=== PATIENT | male | born 1970 | race American Indian/Alaskan Native ===

== ENCOUNTER 2020-05-04 03:45 | Emergency (ER) | payer SELFPAY ==
[2020-05-04] MEDS ORDERED: ACETAMINOPHEN 500 MG TAB PO ONE (04:24)
[2020-05-04] MEDS ORDERED: KETOROLAC 10 MG TAB PO ONE (04:24)
[2020-05-04 04:27] VITALS: BP 146/87
--- NOTE | 2020-05-04 04:27 | Emergency Department Report ---
ED General Adult HPI - General Chief complaint: Pain General Stated complaint: RIB PAIN Time Seen by Provider: 05/04/20 04:22 Source: patient Mode of arrival: Ambulatory Limitations: No Limitations - History of Present Illness Initial comments: 49-year-old male with a past medical history of hypertension, asthma and sleep apnea presents to the ER today complaining of right rib pain. Patient states that last week Tuesday he was getting a massage. He was laying on his abdomen, and during the massage she felt a pop in the right anterior lower ribs. He states since then he has been having pain in that area. He states that is worse when he lays on the right side when he moves in certain positions on palpation and mildly with deep breaths. He states that due to his asthma he has chronic shortness of breath but nothing worsesince the rib injury. He denies any apparent bruising, redness or swelling. Complaint: Right rib pain -: Sudden (Tuesday ) - Related Data Home Medications Medication Instructions Recorded Confirmed Last Taken Carvedilol 25 mg PO DAILY 01/20/18 01/20/18 01/23/18 07:00 Losartan/Hydrochlorothiazide 12.5 - 100 mg PO DAILY 01/20/18 01/20/18 01/23/18 07:00 amLODIPine 10 mg PO DAILY 01/20/18 01/23/18 01/23/18 07:00 Previous Rx's Medication Instructions Recorded Last Taken Type Ibuprofen [Motrin] 800 mg PO Q8HR PRN #30 tablet 05/04/20 Unknown Rx Allergies Allergy/AdvReac Type Severity Reaction Status Date / Time coconut Allergy Intermediate Rash Verified 01/23/18 09:35 ED Review of Systems ROS: Stated complaint: RIB PAIN Other details as noted in HPI Comment: All other systems reviewed and negative Constitutional: denies: chills, fever ENT: denies: ear pain, throat pain Respiratory: denies: cough, shortness of breath, SOB with exertion, SOB at rest, wheezing Cardiovascular: denies: chest pain, palpitations, dyspnea on exertion, orthopnea (Right rib pain), edema, syncope, paroxysmal nocturnal dyspnea Gastrointestinal: denies: abdominal pain, nausea, vomiting, diarrhea, constipation, hematemesis Musculoskeletal: denies: back pain, joint swelling, arthralgia Skin: denies: rash, lesions Neurological: denies: headache, weakness, paresthesias Psychiatric: denies: anxiety, depression ED Past Medical Hx - Past Medical History Previous Medical History?: Yes Hx Hypertension: Yes Hx Asthma: No Additional medical history: Obesity - Surgical History Past Surgical History?: Yes Additional Surgical History: Umbilical Hernia Repair - Social History Smoking Status: Never Smoker Substance Use Type: None - Medications Home Medications: Home Medications Medication Instructions Recorded Confirmed Last Taken Type Carvedilol 25 mg PO DAILY 01/20/18 01/20/18 01/23/18 07:00 History Losartan/Hydrochlorothiazide 12.5 - 100 mg PO DAILY 01/20/18 01/20/18 01/23/18 07:00 History amLODIPine 10 mg PO DAILY 01/20/18 01/23/18 01/23/18 07:00 History Ibuprofen [Motrin] 800 mg PO Q8HR PRN #30 tablet 05/04/20 Unknown Rx ED Physical Exam - General Limitations: No Limitations General appearance: alert, in no apparent distress - Head Head exam: Present: atraumatic, normocephalic, normal inspection - Eye Eye exam: Present: normal appearance, PERRL, EOMI Pupils: Present: normal accommodation - ENT ENT exam: Present: normal exam, mucous membranes moist - Neck Neck exam: Present: normal inspection - Respiratory Respiratory exam: Present: normal lung sounds bilaterally, other (Point tenderness to palpation to the ribs just underneath the right breast. No apparent swelling, bruising or ecchymosis noted. No deformity). Absent: respiratory distress - Cardiovascular Cardiovascular Exam: Present: regular rate, normal rhythm, normal heart sounds - GI/Abdominal GI/Abdominal exam: Present: soft. Absent: distended, tenderness - Neurological Exam Neurological exam: Present: alert, oriented X3, CN II-XII intact, normal gait - Psychiatric Psychiatric exam: Present: normal affect, normal mood - Skin Skin exam: Present: intact ED Course Vital Signs 05/04/20 05/04/20 04:04 04:26 Temperature 98.1 F Pulse Rate 94 H 87 Respiratory 16 18 Rate Blood Pressure 157/119 Blood Pressure 146/87 [Left] O2 Sat by Pulse 95 100 Oximetry ED Medical Decision Making - Radiology Data Radiology results: report reviewed - Medical Decision Making Rib x-ray shows nothing acute. Patient resting comfortably, he does not appear to be in any pain or respiratory distress. He is not toxic or ill-appearing. He is neurologically intact. No further work-up indicated at this time. D iscussed x-ray results and suspected diagnosis with patient. Recommend follow- up with his primary care doctor and take Motrin as prescribed. Patient was stable at time of discharge. Critical care attestation.: If time is entered above; I have spent that time in minutes in the direct care of this critically ill patient, excluding procedure time. ED Disposition Clinical Impression: Rib contusion Disposition: DC-01 TO HOME OR SELFCARE Is pt being admited?: No Does the pt Need Aspirin: No Condition: Stable Instructions: Rib Contusion Additional Instructions: Take the medication as prescribed. Follow up with primary care physician this week. Return to ED if worse,. Prescriptions: Ibuprofen [Motrin] 800 mg PO Q8HR PRN #30 tablet PRN Reason: Pain , Severe (7-10) Referrals: ELIZABET SMITH MD [Primary Care Provider] - 3-5 Days Forms: Work/School Release Form(ED) Time of Disposition: 05:12
--- NOTE | 2020-05-04 04:57 | XRay Report ---
RIGHT RIBS 5 VIEWS INDICATION / CLINICAL INFORMATION: Right rib pain. COMPARISON: None available. FINDINGS: RIBS: No acute, displaced fracture or other acute abnormality. LUNGS: No acute findings. No pneumothorax. Signer Name: Yancy Galvan MD Signed: 05/04/2020 4:53 AM Workstation Name: [id number]
== END 2020-05-04 05:24 | disposition home or self-care (01) ==
LOC: ED 03:45
DX: S20.219A Contusion of unspecified front wall of thorax, initial encounter (principal); I10 Essential (primary) hypertension; E66.9 Obesity, unspecified; J45.909 Unspecified asthma, uncomplicated; Z68.37 Body mass index [BMI] 37.0-37.9, adult; Z79.899 Other long term (current) drug therapy; Z91.018 Allergy to other foods; Z98.890 Other specified postprocedural states; X58.XXXA Exposure to other specified factors, initial encounter; Y93.89 Activity, other specified; Y92.89 Other specified places as the place of occurrence of the external cause; Y99.8 Other external cause status